=== PATIENT | female | born 1970 | race Caucasian/White ===

== ENCOUNTER → 2020-06-10 | Day surgery (SDC) | payer OTHER ==
--- OUTSIDE RECORDS SUMMARY | 2020-06-10 08:53 | XMS ---
:1970 Demographics Address [address] [place] [address] [address] [place] [address] Mobile Preferred Language Mohawk Marital Status or Yarsanism Affiliation [place] Race [facility] Ethnic Group or Author [facility] Support Name Relationship Address Phone UE, UNEMPLOYED Unavailable Unavailable Unavailable UE Unavailable Unavailable Unavailable KATHERINE CASTILLO [address] [facility] [facility] [address] [address] [place] [address] KATHERINE CASTILLO Child [address] [place] [address] Re-disclosure Warning The records that you are about to access may contain information from federally- assisted alcohol or drug abuse programs. If such information is present, then the following federally mandated warning applies: This information has been disclosed to you from records protected by federal confidentiality rules (42 CFR part 2). The federal rules prohibit you from making any further disclosure of this information unless further disclosure is expressly permitted by the written consent of the person to whom it pertains or as otherwise permitted by 42 CFR part 2. A general authorization for the release of medical or other information is NOT sufficient for this purpose. The Federal rules restrict any use of the information to criminally investigate or prosecute any alcohol or drug abuse patient.The records that you are about to access may contain highly sensitive health information, the redisclosure of which is protected by Article 27-F of the [place] State Public Health law. If you continue you may haveaccess to information: Regarding HIV / AIDS; Provided by facilities licensed or operated by the [facility] Office of Mental Health; or Provided by the [facility] Office for People With Developmental Disabilities. If such information is present, then the following [facility] mandated warning applies: This information has been disclosed to you from confidential records which are protected by state law. State law prohibits you from making any further disclosure of this information without the specific written consent of the person to whom it pertains, or as otherwise permitted by law. Any unauthorized further disclosure in violation of state law may result in a fine or fpc sentence or both. A general authorization for the release of medical or other information is NOT sufficient authorization for further disclosure. Insurance Providers Payer name Policy type Policy ID Covered Covered libertarian's Policy P nereyda / Coverage libertarian ID relationship to [employer] Inf ormation type oliva [place] [id number] [place] [id number] HMO Results ID Date Data Source [id number] 12/21/2019 10:00:00 PM EDT [facility] Name Value Range Interpretation Description Data Sup porting Code Source(s) Document(s ) SARS [facility] CORONAVIRUS 2 RNA This lab was ordered by [facility] and reported by [facility]. Procedure Social History Code Duration Value Status Description Data Source(s ) Smoking 12/19/2019 12:00:00 Never Smoker completed Never Smoker e CW3 ([facility]) Smoking 12/19/2019 12:00:00 Never Smoker completed Never Smoker e CW3 ([facility])
--- NOTE | 2020-06-11 17:16 | PATH ---
Surgical Pathology Report Patient Name: EMMA HUERTA Med. Rec. 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 SEE COMMENT. Comment: Immunohistochemical stains performed and interpreted at [facility] show e-cadherin is negative in [facility], supporting the above diagnosis. Positive and negative controls (internal if applicable) show appropriate results. Electronically Signed Rubi Olivarez M.D. Gross Description Received in formalin labeled "left 6:00," are 5 baca-yellow fragments of fibroadipose tissue ranging from 0.3-0.8 cm in length and averaging 0.1 cm in diameter. The specimens are submitted in toto in one cassette. Time to formalin fixation: Less than one minute Total formalin fixation time: Approximately 9 hours. /06/10/2020 [facility]06/10/2020
== END | disposition home or self-care (01) ==
LOC: JRADUS-SUR 08:50
PROVIDERS: ATTEND Nurse Practitioner Family
PROC: 0H9U3ZX Drainage of Left Breast, Percutaneous Approach, Diagnostic (ICD-10-PCS; principal; 2020-06-10)
DX: D24.2 Benign neoplasm of left breast (principal); N60.92 Unspecified benign mammary dysplasia of left breast
CPT/HCPCS: 19083; 87899; 88305-TC; 88342-TC; A4648